=== PATIENT | female | born 1985 | race Caucasian/White ===

== ENCOUNTER 2018-06-19 14:30 | Outpatient (CLI) | payer OTHER, SELFPAY ==
[2018-06-19 14:30] VITALS: BMI 25.6
[2018-06-19 15:46] LABS: Fetal Fibronectin Negative
[2018-06-19 15:50] LABS: Bacteria 0 SEEN /hpf (None Seen); Mucous, Urine 0 SEEN /hpf (<or=2+); Red Blood Cells-Urine 0 SEEN /hpf (0-5)
[2018-06-19 15:52] LABS: Color, Urine Yellow (Yellow); Glucose, Dipstick Normal (Normal); Ketone-Dipstick Negative (Negative); Leukocyte Esterase-Dipstick 25 /ul (Negative); Nitrite-Dipstick Negative (Negative); Occult Blood-Urine Negative /ul (Negative); Protein-Dipstick Negative (Negative); Urine Bilirubin Dipstick Negative (Negative); Urine Clarity Clear (Clear); Urine Urobilinogen Normal (Normal)
[2018-06-19] MEDS: Lactated Ringers 1,000 ML 999 ML IV (16:00)
[2018-06-19 16:07] LABS: Squamous Epithelial Cells - UA 0-5 SEEN /hpf (5-10); White Blood Cells 0-5 SEEN /hpf (0-5)
[2018-06-19] MEDS: Betamethasone/Betamethasone 30 MG/5 ML Vial 12 MG IM (18:00)
--- NOTE | 2018-06-19 18:10 | OB.TRI.NOTE ---
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 Pain started last night then improved. Today has worsened and decided to come to hospital. Upon arriving in L&D pain resolved in back and thighs then became suprapubic cramping. Denies any leakage of fluid, vaginal bleeding, no recent intercourse, or other complaints. After being on L&D unit pain still remains the same and patient does not notice any improvement. During this started 17 OHP injections at 16 weeks. No funneling on ultrasounds and last CL 34mm per patient. Allergies No Known Allergies Allergy (Verified 12/16/16 17:44) Review of Systems Constitutional: Denies: Chills, Fever, Weight Change Cardiovascular: Denies: Chest Pain, Palpitations Respiratory: Denies: Cough, Shortness of breath at rest, Sputum production Gastrointestinal: Reports: Abdominal Pain. Denies: Constipation, Diarrhea, Nausea, Vomiting Genitourinary: Denies: Dysuria, Frequency, Hematuria, Urgency Gynecological: Denies: Vaginal bleeding, Vaginal discharge Physical Exam General: Alert, Oriented x3, No apparent distress HEENT: Atraumatic, Normocephalic Cardiovascular: Regular rate, Regular Rhythm, No murmurs Lungs: Clear to auscultation, Normal air movement, No rhonchi, No wheeze Abdomen: Bowel Sounds Present, Soft, Non Tender, Gravid, - - No CVAT Extremities:: No edema Neurological: Deep Tendon Reflexes 2+/4 and Symmetrical Estimated gestational size: Appropriate for gestational size Presentation: Breech - Verified by bedside ultrasound Cervix Dilation (cm): 1 Station: -3 Effacement (%): 50 NST - FHR Rate Baby A Baseline: 145 Variability:: Moderate Accelerations:: 15 x 15 Decelerations:: None NST Reactive:: Yes, Appropriate for gestational age FHR Category:: Category I Uterine Activity:: No uterine activity appreciated on monitor. Patient has been able to sheri strip when she feels pain. At times it correlates with minimal rise from baseline and other times it does. No significant contractions monitored. No uterine contractions palpated. Impression/Plan A: Rule out labor, History of labor P: 1) Insert IV, 1 liter LR fluid bolus given. CBC ordered 2) Betamethasone 12mg IM once, repeat dose in 24 hours. 3) Bedside ultrasound confirmed breech presentation. 4) Bathroom privileges, Regular diet. 5) notified of patient vaginal exam 1cm/50%/-3, soft, anterior, breech presentation, confirmed by U/S. Possible minimal cervical change but I will re-exam patient with cervical exam if pain increases or contractions identified on monitor. If no change in pain or contractions, will recheck in the am. co-management at this time and agrees with plan of care. Kyra Davidson CNM
[2018-06-19 18:59] LABS: Absolute Neutrophil Count 6.4 X10^3/uL (2.0-7.7); Basophil# 0.02 X10^3/uL; Basophil% 0.2 % (0-1); Eosinophils% 3.3 % (0-5); Hematocrit 35.2 % (37-47); Hemoglobin 11.9 g/dl (12.0-15.0); Lymphocyte % 18.8 % (19-41); Mean Corp Hgb Conc 33.8 g/gl (32-36); Mean Corpuscular Hgb 30.6 pg (27.0-32.0); Mean Corpuscular Volume 90.5 fL (81-99); Mean Platelet Vol. 11.2 fl (6.2-12.0); Monocyte# 0.59 X10^3/uL; Monocyte% 6.5 % (0-10); Neutrophil # 6.41 X10^3/uL (2.7-7.7); Neutrophil % 71.1 % (47-70); POSITIVE COUNT NO; POSITIVE DIFFERENTIAL NO; POSITIVE MORPHOLOGY NO; Platelet Count 257 K/mm3 (150-450); RBC Distribution Width CV 13.2 % (11.6-14.6); RBC Distribution Width SD 42.9 fl (35.1-43.9); Red Blood Count 3.89 M/mm3 (4.2-5.4)
[2018-06-19] MEDS: levETIRAcetam 750 MG Tablet 1500 MG PO (21:24)
--- NOTE | 2018-06-20 07:00 | PCM.PN.OB ---
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 Denies any further cramping, pain, or feeling contractions. Rested throughout the night. Objective: Cervix: 1cm/50%/-3, unchanged from previous exam TOCO: No contractions at this time. Had episodes of intermittent, irregular contractions, not able to be palpated throughout the night. - Physical Exam Abdomen: Soft, Non Tender, Gravid Psych/Mental Status: Normal Affect, Appropriate Weight: 149 lb 4.047 oz Body Mass Index (BMI) 25.6 Laboratory Tests Past 24 Hrs 06/19/18 06/19/18 06/19/18 14:40 15:40 18:40 WBC 9.0 RBC 3.89 L Hgb 11.9 L Hct 35.2 L MCV 90.5 MCH 30.6 MCHC 33.8 RDW 13.2 RDW Differential 42.9 Plt Count 257 MPV 11.2 Immature Gran % (Auto) 0.100 Neut % (Auto) 71.1 H Lymph % (Auto) 18.8 L Hayes % (Auto) 6.5 Eos % (Auto) 3.3 Baso % (Auto) 0.2 Absolute Neuts (auto) 6.4 Absolute Lymphs (auto) 1.70 Total Counted Not Reportable Urine Color Yellow Urine Clarity Clear Urine pH 6.0 Ur Specific Susan 1.020 Urine Protein Negative Urine Glucose (UA) Normal Urine Ketones Negative Urine Occult Blood Negative Urine Nitrite Negative Urine Bilirubin Negative Urine Urobilinogen Normal Ur Leukocyte Esterase 25 H Urine RBC 0 SEEN Urine WBC 0-5 SEEN Ur Squamous Epith Cells 0-5 SEEN Urine Bacteria 0 SEEN Urine Mucus 0 SEEN Fibronectin Negative Medical Necessity - Tobacco Use Smoking Status: Never smoker Assessment/Plan All Active Problems History of labor (Acute) History of delivery (Acute) Hx successful (vaginal after ), currently (Acute) 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 2) Discharge instructions given, nothing in the vagina, no intercourse. 3) Betamethasone 12mg IM once given yesterday, repeat today at 24 hours. 4) Has OB visit in 4 days with ultrasound, ok to keep this visit. 5) Reviewed PTL precautions and when to call. If pain returns to call. 6) notified and updated on patient status, no cervical change, and plan. Agrees at this time.
--- NOTE | 2018-06-20 07:09 | PCM.DC ---
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 Allergies/Adverse Reactions: Allergies No Known Allergies Allergy (Verified 12/16/16 17:44) Medications to take at Discharge Folic Acid 0.8 mg PO DAILY 12/16/16 Vits [Prenatabs FA ] 1 tablet PO DAILY 12/16/16 levETIRAcetam tablet [Keppra tablet] 1,500 mg PO BID 12/16/16 Progesterone [Progesterone in Oil] 50 mg IM QWEEK 03/18/17 Primary Care Physician: Aurelio Ag MD [Primary Care Provider] - Test Results: Test results from this visit will be discussed in further detail at your follow-up appointment, if applicable. Please Follow Up With: Merna Reece MD When: As scheduled for OB visit on 06/24/18
== END 2018-06-20 07:20 | disposition home or self-care (01) ==
LOC: WPOUT 14:35 → WP 14:36
PROVIDERS: Advanced Practice Midwife; Visit Provider Obstetrics & Gynecology
DX: O47.1 False labor at or after 37 completed weeks of gestation (principal); O32.1XX0 Maternal care for breech presentation, not applicable or unspecified; Z3A.39 39 weeks gestation of pregnancy
CPT/HCPCS: 96360; 36415; 59025; 59050; 76815; 81001; 82731; 85025; 96372; 99218; J7120; G0378; J0702

== ENCOUNTER 2018-06-20 18:05 | Outpatient (CLI) | payer OTHER, SELFPAY ==
[2018-06-20 18:15] VITALS: BMI 25.9
[2018-06-20] MEDS: Betamethasone/Betamethasone 30 MG/5 ML Vial 12 MG IM (18:16)
--- NOTE | 2018-07-19 08:47 | OB.TRI.PN ---
Progress Notes Date of Service: 06/21/18 Progress Note: Patient here today to receive second dose of Celestone due to contractions. O: Nursing staff to give Celestone injection A:False Labor P: 1) Second dose of Celestone to be given today due to contractions.
== END 2018-06-20 18:25 | disposition home or self-care (01) ==
LOC: WPOUT 18:10 → WP 18:11
PROVIDERS: Visit Provider Advanced Practice Midwife
DX: O60.00 Preterm labor without delivery, unspecified trimester (principal); Z3A.00 Weeks of gestation of pregnancy not specified
CPT/HCPCS: 96372; 99218; G0378; J0702

== ENCOUNTER 2018-08-24 04:03 | Outpatient (CLI) | payer OTHER, SELFPAY ==
[2018-08-24] MEDS: Lactated Ringers 1,000 ML 999 ML IV (04:50)
[2018-08-24 05:11] VITALS: BMI 27.9
[2018-08-24 05:12] LABS: Hematocrit 35.9 % (37-47); Hemoglobin 12.1 g/dl (12.0-15.0); Mean Corp Hgb Conc 33.7 g/gl (32-36); Mean Corpuscular Hgb 30.6 pg (27.0-32.0); Mean Corpuscular Volume 90.7 fL (81-99); Mean Platelet Vol. 10.8 fl (6.2-12.0); Platelet Count 211 K/mm3 (150-450); RBC Distribution Width CV 13.4 % (11.6-14.6); RBC Distribution Width SD 44.3 fl (35.1-43.9); Red Blood Count 3.96 M/mm3 (4.2-5.4); White Blood Count 10.9 K/mm3 (4.4-11.0)
[2018-08-24 05:16] LABS: Scan Indicated on CBC? Y/N NO
[2018-08-24 05:24] LABS: AST(SGOT) 16 U/L (15-37); Alanine Aminotransfer ALT/SGPT 18 U/L (13-56); Amylase 51 U/L (25-115); Anion Gap 10 (5-15); BUN 11 mg/dL (7-18); BUN/Creat Ratio 18.5 RATIO (10-20); Chloride 105 mmol/L (98-107); Creatinine, Serum 0.59 mg/dL (0.55-1.02); EST Glomerular Filtration Rate 125 mL/min (>60); Est Glom Filt Rate - Afr Amer 151 mL/min (>60); Glucose 91 mg/dL (74-106); Lipase 86 U/L (73-393); Potassium 3.4 mmol/L (3.5-5.1); Sodium Level 140 mmol/L (136-145)
[2018-08-24] MEDS: proMETHazine 25 MG/ML Syringe IV (05:25)
[2018-08-24] MEDS: Ondansetron 4 MG/2 ML Vial IV (06:41)
--- NOTE | 2018-08-24 07:48 | OB.TRI.NOTE ---
History of Present Illness Date of Service: 08/24/18 Was patient seen by the physician?: Yes Reason For Visit: vomiting Date of Service: 08/24/18 Final VANITA Source: LMP Gestational age: 36.1 History of Present Illness: 33yo @ 36.1 wks c/o vomiting and abdominal pain that started around 1am. pt denies fever, sick contacts, diarrhea. Pt reports good FM, no vaginal bleeding or leaking fluid. Pt currently on DEDRICK infections for h/o deliveries. pt offers no other concerns today. Allergies No Known Allergies Allergy (Verified 08/24/18 05:07) Laboratory Studies: Laboratory Tests 08/24/18 08/24/18 Range/Units 04:50 04:50 WBC 10.9 (4.4-11.0) K/mm3 RBC 3.96 L (4.2-5.4) M/mm3 Hgb 12.1 (12.0-15.0) g/dl Hct 35.9 L (37-47) % MCV 90.7 (81-99) fL MCH 30.6 (27.0-32.0) pg MCHC 33.7 (32-36) g/gl RDW 13.4 (11.6-14.6) % RDW Differential 44.3 H (35.1-43.9) fl Plt Count 211 (150-450) K/mm3 MPV 10.8 (6.2-12.0) fl Sodium 140 (136-145) mmol/L Potassium 3.4 L (3.5-5.1) mmol/L Chloride 105 (98-107) mmol/L Carbon Dioxide 25.0 (21.0-32.0) mmol/L Anion Gap 10 (5-15) BUN 11 (7-18) mg/dL Creatinine 0.59 (0.55-1.02) mg/dL Estim Creat Clear Calc 119.30 ml/min Est GFR (MDRD) Af Amer 151 (>60) mL/min Est GFR (MDRD) Non-Af 125 (>60) mL/min BUN/Creatinine Ratio 18.5 (10-20) RATIO Glucose 91 (74-106) mg/dL Calcium 8.0 L (8.5-10.1) mg/dL AST 16 (15-37) U/L ALT 18 (13-56) U/L Amylase 51 (25-115) U/L Lipase 86 (73-393) U/L Review of Systems Constitutional: Denies: Chills, Fever Eyes: Denies: Blurred vision HEENT: Denies: Head Aches Cardiovascular: Denies: Chest Pain Respiratory: Denies: Shortness of Breath Gastrointestinal: Reports: Abdominal Pain - RUQ pain, Vomiting Physical Exam General: Alert, Oriented x3 Abdomen: Soft, Gravid, - - pain in RuQ ON DEEP PALPATION NST - FHR Rate Baby A Baseline: 150 Variability:: Moderate Accelerations:: 15 x 15 Decelerations:: None NST Reactive:: Yes FHR Category:: Category I Uterine Activity:: NO CTX Impression/Plan 33YO @ 36.1 WKS WITH VOMITING AND ABDOMINAL PAIN 1) IVF 2) PHENERGAN/ZOFRAN ORDERED 3) LABS DRAWN AND REVIEWED 4) ULTRASOUND RUQ- R/O CHOLECYSTITIS 5) BLAND DIET IF TOLERATED 6) DR WALLACE WILL REEVALUATE LATER TODAY
--- NOTE | 2018-08-24 09:00 | US_ITS ---
STUDY: ABDOMINAL ULTRASOUND - RIGHT UPPER QUADRANT REASON FOR VISIT: Female, 33 years old. Right upper quadrant pain. The patient is 36 weeks . TECHNIQUE: Ultrasound evaluation of the right upper quadrant was performed with real-time and static rodriguez-scale imaging. TECHNICAL QUALITY: Limited. Examination limited due to the patient?s condition. COMPARISON: None. FINDINGS: Liver: The liver measures 15.6 cm. There is normal echogenicity of the liver. The bile ducts are within normal limits. There is hepatic color flow. The direction of portal flow is hepatopetal. There is no demonstrated mass lesion. Gallbladder: Normal distended gallbladder. The gallbladder wall measures 2.6 mm. There is a negative sonographic Crenshaw's sign. There is minimal pericholecystic fluid. There are no gallstones. Sludge is seen within the gallbladder lumen. Common Bile Duct (C.B.D.): The common bile duct measures 7.2 mm. Pancreas: Normal size of the head, body and tail of the pancreas. There is normal echogenicity of the pancreas. There is no demonstrated pancreatic mass or cyst. Right Kidney: Normal size of the right kidney. The right kidney measures 9.4 cm x 6.2 cm x 4.3 cm. Normal renal cortex. The right cortex measures 1.3. cm. There is no demonstrated renal mass or cyst. There is no right hydronephrosis. US/Abdomen Limited IMPRESSION: Sludge is seen in the gallbladder lumen. Minimal pericholecystic fluid. Electronically Signed: Wade Hayes MD at 11:59 EDT Tel [phone], Service support ,
--- NOTE | 2018-08-24 10:00 | US_ITS ---
STUDY: ABDOMINAL ULTRASOUND - RIGHT UPPER QUADRANT REASON FOR VISIT: Female, 33 years old. Right upper quadrant pain. The patient is 36 weeks . TECHNIQUE: Ultrasound evaluation of the right upper quadrant was performed with real-time and static rodriguez-scale imaging. TECHNICAL QUALITY: Limited. Examination limited due to the patient?s condition. COMPARISON: None. FINDINGS: Liver: The liver measures 15.6 cm. There is normal echogenicity of the liver. The bile ducts are within normal limits. There is hepatic color flow. The direction of portal flow is hepatopetal. There is no demonstrated mass lesion. Gallbladder: Normal distended gallbladder. The gallbladder wall measures 2.6 mm. There is a negative sonographic Crenshaw's sign. There is minimal pericholecystic fluid. There are no gallstones. Sludge is seen within the gallbladder lumen. Common Bile Duct (C.B.D.): The common bile duct measures 7.2 mm. Pancreas: Normal size of the head, body and tail of the pancreas. There is normal echogenicity of the pancreas. There is no demonstrated pancreatic mass or cyst. Right Kidney: Normal size of the right kidney. The right kidney measures 9.4 cm x 6.2 cm x 4.3 cm. Normal renal cortex. The right cortex measures 1.3. cm. There is no demonstrated renal mass or cyst. There is no right hydronephrosis. US/Abdomen Limited IMPRESSION: Sludge is seen in the gallbladder lumen. Minimal pericholecystic fluid. Electronically Signed: Wade Hayes MD at 11:59 EDT Tel [phone], Service support ,
[2018-08-24] MEDS: proMETHazine 25 MG/ML Syringe 12.5 MG IV (12:50)
[2018-08-24] MEDS: Lactated Ringers 1,000 ML 125 ML IV (14:54)
[2018-08-24] MEDS: Acetaminophen 500 MG Tablet 1000 MG PO (16:56)
== END 2018-08-24 17:15 | disposition home or self-care (01) ==
LOC: WPOUT 04:29 → WP 04:30
PROVIDERS: Visit Provider Obstetrics & Gynecology
DX: O21.9 Vomiting of pregnancy, unspecified (principal); O26.893 Other specified pregnancy related conditions, third trimester; R10.11 Right upper quadrant pain; Z3A.36 36 weeks gestation of pregnancy
CPT/HCPCS: 96361; 96374; 96375; 96376; 36415; 59025; 59050; 76705; 80048; 82150; 83690; 84450; 84460; 85027; 99218; J7120; A4216; G0378; J2405

== ENCOUNTER 2018-08-26 16:00 | Inpatient (IN) | payer OTHER, SELFPAY ==
[2018-08-26 16:12] VITALS: BMI 28.0
--- NOTE | 2018-08-26 16:33 | PCM.HP.OB ---
History Date of Admission: 08/26/18 Final VANITA: 09/20/18 Final VANITA Source: LMP Gestational age: 36 Weeks and 3 Days History of this : 33-year-old 5 para 0222 female presents complaining of contractions. She was seen in the office twice today. This morning she was seen for increased contractions and was found to be priya irregularly approximately every 7-8 minutes. She was found however to have change from 3 cm upon previous exam to now 5 cm. Her cervix was still somewhat firm and posterior so she was sent home and she returned this afternoon for reevaluation. She was found to be more uncomfortable and priya closer together and she was 6 cm 80% effaced and -1 station. She was sent to labor and delivery for labor. She denies any gross vaginal bleeding or leaking of fluid. Current is complicated by history of 2 previous deliveries and she was on progesterone during this . She also has a seizure disorder. 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 She also has a history of migraines and has had quite a few headaches during the .. Medical History: Medical History (Last Updated 08/24/18 @ 07:52 by Melisa Rico MD) Epilepsy G40.909 Allergies No Known Allergies Allergy (Verified 08/24/18 05:07) Home Medications: Home Medications Folic Acid 0.8 mg PO DAILY 12/16/16 Vits [Prenatabs FA ] 1 tablet PO DAILY 12/16/16 levETIRAcetam tablet [Keppra tablet] 1,500 mg PO BID 12/16/16 Smoking Status: Never smoker History Past Pregnancies: Past Pregnancies Delivery Date Name GA/Weeks Outcome Route Weight Infant Gender Labor Length Anesthesia Delivery Location Provider FOB Expected Infant Delivery Method: Spontaneous Vaginal Review of Systems Constitutional: Denies: Anorexia, Chills, Fever Eyes: Denies: Blurred vision Cardiovascular: Denies: Chest Pain, Chest Pressure Respiratory: Denies: Shortness of Breath Skin: Denies: Rash Neurological: Reports: Headaches - Have been persistent pretty much throughout the . No significant changes in the last few days.. Denies: Slurred speech, Confusion Physical Exam General: Alert, Cooperative, No apparent distress, - - Appears uncomfortable and is wincing with contractions. HEENT: Atraumatic Cardiovascular: Regular Rhythm Lungs: Normal air movement Abdomen: Soft, Non Tender - Between contractions, Non-Distended, Gravid, Appropriate for Gestational Age Extremities:: No edema, Deep tendon reflexes - 2+ GLASS CALIBRATOR: Normal external genitalia Estimated gestational size: Appropriate for gestational size Presentation: Cephalic Cervix Dilation (cm): 6 Station: -1 Effacement (%): 80 Assessment/Plan All Active Problems (Last Updated 08/24/18 @ 07:52 by Melisa Rico MD) History of labor (Acute) History of delivery (Acute) Hx successful (vaginal after ), currently (Acute) 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 She has a history of one previous section and one successful vaginal after section. Patient would like to proceed with trial of labor. Consent was previously signed. Estimated weight is less than 4500 g and pelvis clinically adequate. May have epidural or Nubain as needed. Will initiate group B strep prophylaxis. Will need to continue her antiseizure medications in labor. If patient would need a section, she would likely elect for a tubal ligation as she plans permanent sterilization for contraception.
[2018-08-26] MEDS: Lactated Ringers 1,000 ML 50 ML IV ×2 (16:35→17:35)
[2018-08-26 17:01] LABS: Hematocrit 35.5 % (37-47); Hemoglobin 11.9 g/dl (12.0-15.0); Mean Corp Hgb Conc 33.5 g/gl (32-36); Mean Corpuscular Hgb 30.6 pg (27.0-32.0); Mean Corpuscular Volume 91.3 fL (81-99); Mean Platelet Vol. 11.5 fl (6.2-12.0); Platelet Count 227 K/mm3 (150-450); RBC Distribution Width CV 13.6 % (11.6-14.6); RBC Distribution Width SD 44.9 fl (35.1-43.9); Red Blood Count 3.89 M/mm3 (4.2-5.4); Scan Indicated on CBC? Y/N NO; White Blood Count 5.9 K/mm3 (4.4-11.0)
[2018-08-26] MEDS: fentaNYL-bupivacaine (epidural) 100 ML BAG EPIDURAL (17:56)
--- NOTE | 2018-08-26 19:02 | NURSING ---
Dr. Paredes notified of pt request, IV bolus infusing. epidural not placed until initial bolus nearly complete per protocol
[2018-08-26] MEDS: Oxytocin 30 units/NS 500 ml 30 UNITS/500 ML IV.SOLN 334 UNITS IV (20:17)
--- NOTE | 2018-08-26 20:35 | PCM.OB.VAG ---
Vaginal Delivery Maternal Presentation: Active Labor Amniotic Membrane Rupture Type: Artificial Amniotic Fluid Description: Clear Final VANITA: 09/20/18 Final VANITA Source: US <20 weeks Gestational age: 36 Weeks and 3 Days Date of Procedure: 08/26/18 Pre-Operative Diagnosis: labor Post-Operative Diagnosis: same Surgery/ Procedure Performed: Spontaneous Vaginal Delivery - Vaginal after Type of Anesthesia: Epidural Description of Procedure: A vigorous female infant was delivered TITA over a second-degree perineal laceration. A loose nuchal cord ?1 was easily reduced. The remainder the infant was delivered with maternal pushing and gentle traction only in less than 15 seconds. The Pitocin infusion was initiated for active management of the third stage. The cord was clamped and cut after 1 minute. The was attended to by the waiting nursing staff. The placenta was delivered spontaneously and intact. The cervix and vagina were intact. The second-degree perineal laceration was repaired with 3-0 Vicryl suture in a running standard fashion. Sponge and needle counts were correct. A vaginal sweep was completed by me. Presentation: TITA Placental Delivery Description: Spontaneous Placenta Disposition: [facility] Cord Vessel Description: 3 Vessels Nuchal Cord Compression: Without compression Cord Entanglement: Around neck x 1, loose Drain: Webb to straight drain Estimated Blood Loss: 300cc Infant A gender: Female (1 minute): 8 (5 minute): 9 Episiotomy Description: None Laceration: 2nd degree - perineal Medications given after delivery: IV Pitocin Complications: None
[2018-08-26] MEDS: Oxytocin 30 units/NS 500 ml 30 UNITS/500 ML IV.SOLN 167 UNITS IV (20:47)
[2018-08-26] MEDS: levETIRAcetam 750 MG Tablet 1500 MG PO (22:51)
--- NOTE | 2018-08-26 23:02 | NURSING ---
Bedside shift report given to Juliana Sánchez RN. She will assume care of patient at this time.
[2018-08-26] MEDS: Acetaminophen 500 MG Tablet 1000 MG PO (23:05)
[2018-08-27 00:17] VITALS: BP 109/72; PULSE 98; RESP 20; TEMP 37.2
[2018-08-27 04:30] VITALS: BP 97/62; PULSE 78; RESP 18; TEMP 37.1
--- NOTE | 2018-08-27 07:09 | PCM.PN.OB ---
Subjective: Pain well controlled, average lochia. Ambulating and urinating without difficulty - Physical Exam General: Alert, Cooperative, No apparent distress Vital Signs Temp Pulse Resp BP 98.7 F 78 18 97/62 08/27/18 04:30 08/27/18 04:30 08/27/18 04:30 08/27/18 04:30 Weight: 74.2 kg Body Mass Index (BMI) 28.0 Intake and Output for Last 24 Hours 08/25/18 08/26/18 08/27/18 23:59 23:59 23:59 Intake Total 2700 / 2700 Output Total 200 / 200 Balance 2500 / 2500 Laboratory Tests Past 24 Hrs 08/26/18 08/26/18 16:35 16:35 WBC 5.9 RBC 3.89 L Hgb 11.9 L Hct 35.5 L MCV 91.3 MCH 30.6 MCHC 33.5 RDW 13.6 RDW Differential 44.9 H Plt Count 227 MPV 11.5 Blood Type O POSITIVE Antibody Screen NEGATIVE Medical Necessity - Tobacco Use Smoking Status: Never smoker Assessment/Plan All Active Problems (Last Updated 08/24/18 @ 07:52 by Melisa Rico MD) History of labor (Acute) History of delivery (Acute) Hx successful (vaginal after ), currently (Acute) 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 His tongue-tied they are going to try and get an ENT consult today. Routine care for mom.
--- NOTE | 2018-08-27 07:13 | DCINST_ITS ---
Discharge Diet: No Restrictions Discharge Activity: Return to Normal Activity, May not drive while taking narcotic pain medications., May Shower May resume sexual activity in: 4-6 weeks Additional Activity Instructions:: Nothing in the vagina for 4-6 weeks. You may return to work/school in 6 weeks. Call your doctor if your incision/area has: Continuous Slow Oozing, Sudden Increased Bleeding, Increased Pain/ Swelling, Increased Redness, Foul Smelling Discharge Additional Instructions: If you experience any of the following, contact your healthcare provider. * Bleeding that soaks a pad every hour for 2 hours * Fever 100.4 or higher * Unrelieved incision or abdominal pain * Swelling, redness, discharge or bleeding from your incision or episiotomy site * Your incision begins to separate * Problems urinating (including inability to urinate or burning while urinating). * Visual changes * Severe headache * Flu-like symptoms * Pain or redness in one of both of your breasts * Pain, warmth, tenderness or swelling in your legs, especially the calf area * Frequent nausea and vomiting * Symptoms of depression or anxiety If you experience any of the following, call 911 or go to the nearest Emergency Room. * Chest pain * Problems breathing * Seizure activity * Partial or complete paralysis of a body part, slurred speech, weakness or drooping of the face, or a sudden inability to walk or hold your balance Allergies/Adverse Reactions: Allergies No Known Allergies Allergy (Verified 08/24/18 05:07) Medications to take at Discharge Folic Acid 0.8 mg PO DAILY 12/16/16 Vits [Prenatabs FA ] 1 tablet PO DAILY 12/16/16 levETIRAcetam tablet [Keppra tablet] 1,500 mg PO BID 12/16/16 Ibuprofen [Motrin] 600 mg PO Q6H PRN #60 tablet 08/27/18 The following prescriptions were given: Ibuprofen [Motrin] 600 mg PO Q6H PRN #60 tablet PRN Reason: Pain Please Follow Up With: Merna Reece MD When: Call to make an appointment with your doctor in 1-2 and 6 weeks. Primary Care Physician: Aurelio Ag MD [Primary Care Provider] - Test Results: Test results from this visit will be discussed in further detail at your follow- up appointment, if applicable.
[2018-08-27] MEDS: levETIRAcetam 750 MG Tablet 1500 MG PO ×2 (09:53→21:53)
[2018-08-27] MEDS: Senna/Docusate Sodium 1 Tablet PO (09:55)
[2018-08-27 10:00] VITALS: BP 110/71; PULSE 89; RESP 18; TEMP 36.3; O2SAT 98
[2018-08-27] MEDS: Naproxen 250 MG Tablet PO (10:06)
[2018-08-27] MEDS: Dibucaine 30 GM Tube 1 APPLIC TOPICAL (10:07)
[2018-08-27 12:00] VITALS: BP 109/76; PULSE 77; RESP 18; TEMP 36.3; O2SAT 98
[2018-08-27] MEDS: Acetaminophen 500 MG Tablet 1000 MG PO (16:36)
[2018-08-27 16:37] VITALS: BP 105/70; PULSE 81; RESP 18; TEMP 36.7; O2SAT 97
[2018-08-27 20:05] VITALS: BP 109/76; PULSE 64; RESP 16; TEMP 36.3
[2018-08-28 02:15] VITALS: BP 109/64; PULSE 77; RESP 16; TEMP 36.5
--- NOTE | 2018-08-28 08:24 | PCM.PN.OB ---
Subjective: pt seen at bedside, doing well. pt reports good pain control. lochia mild. Breast feeding. Voiding w/o difficulty. - Physical Exam General: Alert, Oriented x3 Abdomen: Soft, Non Tender, - - fundus firm Extremities: No Calf Tenderness Vital Signs Temp Pulse Resp BP Pulse Ox 97.7 F L 77 16 109/64 97 08/28/18 02:15 08/28/18 02:15 08/28/18 02:15 08/28/18 02:15 08/27/18 16:37 Oxygen Delivery Method Room Air Weight: 74.2 kg Body Mass Index (BMI) 28.0 Intake and Output for Last 24 Hours 08/26/18 08/27/18 08/28/18 23:59 23:59 23:59 Intake Total 2700 / 2700 Output Total 200 / 200 600 / 600 Balance 2500 / 2500 -600 / -600 Medical Necessity - Tobacco Use Smoking Status: Never smoker Assessment/Plan All Active Problems (Last Updated 08/24/18 @ 07:52 by Melisa Rico MD) History of labor (Acute) History of delivery (Acute) Hx successful (vaginal after ), currently (Acute) 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
[2018-08-28 10:00] VITALS: BP 112/78; PULSE 79; RESP 16; TEMP 36.5
[2018-08-28] MEDS: levETIRAcetam 750 MG Tablet 1500 MG PO (10:07)
[2018-08-28] MEDS: Senna/Docusate Sodium 1 Tablet PO (10:11)
[2018-08-28 15:55] VITALS: BP 113/68; PULSE 77; RESP 18; TEMP 36.6
--- NOTE | 2018-08-28 16:51 | NURSING ---
[id number] Patient requests to go home today. States she is comfortable going home and is able to care for herself and her baby. Sim with fe given for supplementing if needed. 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 Discharge instructions reviewed including jaundice and feedings. Voiced understanding. Discharged to home with baby via wheelchair to car.
== END 2018-08-28 15:55 | disposition home or self-care (01) | DRG 806 ==
PROVIDERS: Admitting Provider Obstetrics & Gynecology; Referring Provider Obstetrics & Gynecology; Visit Provider Obstetrics & Gynecology
DX: O60.14X0 Preterm labor third trimester with preterm delivery third trimester, not applicable or unspecified (principal); O99.354 Diseases of the nervous system complicating childbirth; Z37.0 Single live birth; G40.909 Epilepsy, unspecified, not intractable, without status epilepticus; O99.824 Streptococcus B carrier state complicating childbirth; O70.1 Second degree perineal laceration during delivery; O69.81X0 Labor and delivery complicated by cord around neck, without compression, not applicable or unspecified; Z3A.36 36 weeks gestation of pregnancy; Z79.899 Other long term (current) drug therapy
CPT/HCPCS: 59025; 59050; 85027; 86850; 86900; 99218; J7120; G0378

== ENCOUNTER 2018-10-21 09:00 | Day surgery (SDC) | payer OTHER, SELFPAY ==
[2018-10-21] VITALS (11 sets, daily range): BP systolic 100–140; BP diastolic 65–97; PULSE 52–97; RESP 16–18; TEMP 36.1–36.6; O2SAT 98–100; BMI 22.8
[2018-10-21] MEDS: Acetaminophen 500 MG Tablet 1000 MG PO (09:40)
[2018-10-21 09:41] LABS: Internal QC Validated? YES +Cl - CLEAR BKGD
[2018-10-21 09:46] LABS: Absolute Lymphocyte Count 1.64 X10^3/ul (0.83-4.51); Absolute Neutrophil Count 1.7 X10^3/uL (2.0-7.7); Basophil# 0.05 X10^3/uL; Basophil% 1.2 % (0-1); Eosinophil# 0.33 X10^3/uL; Eosinophils% 8.1 % (0-5); Hematocrit 39.1 % (37-47); Hemoglobin 12.9 g/dl (12.0-15.0); Lymphocyte # 1.64 X10^3/ul (4.0); Lymphocyte % 40.5 % (19-41); Mean Corpuscular Hgb 29.3 pg (27.0-32.0); Mean Corpuscular Volume 88.9 fL (81-99); Mean Platelet Vol. 11.2 fl (6.2-12.0); Monocyte# 0.32 X10^3/uL; Monocyte% 7.9 % (0-10); Neutrophil # 1.71 X10^3/uL (2.7-7.7); Neutrophil % 42.3 % (47-70); Platelet Count 263 K/mm3 (150-450); RBC Distribution Width CV 12.3 % (11.6-14.6); RBC Distribution Width SD 39.3 fl (35.1-43.9); White Blood Count 4.1 K/mm3 (4.4-11.0)
[2018-10-21 09:46] LABS: Pregnancy, Urine Negative Negative
[2018-10-21] MEDS: Ketorolac 30 MG/ML Syringe IV (09:53)
[2018-10-21 09:55] LABS: POSITIVE COUNT NO; POSITIVE DIFFERENTIAL NO; POSITIVE MORPHOLOGY NO
[2018-10-21] MEDS: Bupivacaine Mpf 0.5% 30 ML VIAL (10:25)
--- NOTE | 2018-10-21 10:30 | FALS_PTH ---
PATIENT: ISAM SMITH LOC: [facility] [place] U#:[id number] AGE/SX: 33/F ROOM: RE10/21/[address]: Dr. Merna Reece MD : [id number] BED: DIS: 10/21/2018 SPEC #: [id number] RECD: 10/21/18 11:37 STATUS: SAMEER REMerlene #: [id number] ISSAC: 10/21/18 10:[address]: Merna Reece DEPT: SURGICAL PATHOLOGY RECD BY: Mike Lerma ENTERED: 10/21/18 12:56 SP TYPE: FALL TUBES OTHR DR: Dr. Arturo Farley MD Tissues: Fallopian tube Procedures: Surgery Specimen Level II HEADER OPERATION: Laparoscopic salpingectomy PRE-OP DIAGNOSIS: Sterilization request TISSUE SUBMITTED: Bilateral fallopian tubes MICROSCOPIC DIAGNOSIS Bilateral fallopian tubes, salpingectomy: Completely transected segments of bilateral fallopian tubes, no pathologic diagnosis. SJ:ortiz 10/22/18 MICROSCOPIC DESCRIPTION Slides are reviewed. GROSS DESCRIPTION Received is one container labeled with the patient's name and designated bilateral fallopian tubes. The specimen consists of bilateral fallopian tubes including fimbrial ends measuring 6.5 cm in length and 0.5 cm in diameter. Sections do not reveal any mass lesion. The fallopian tubes are not identified as right or left. Sections reveal unremarkable cut surfaces. Yarn Salvager sections are submitted in two cassettes with each cassette containing one fallopian tube. / AM:ortiz 10/21/18 TC:5 CPT: 03859 x2
--- NOTE | 2018-10-21 10:39 | PCM.DC.TUB ---
Discharge Diet: No Restrictions - Increase fluid intake for the next 48 hours. Discharge Activity: Return to Normal Activity, May Drive - when you are no longer taking pain/narcotic meds., May Shower, May Take a Tub Bath - in 7 days Additional Activity Instructions:: Ambulate often the next week after surgery. Nothing in the vagina for 5 days. Call your doctor if your incision/area has: Continuous Slow Oozing, Sudden Increased Bleeding, Increased Pain/ Swelling, Increased Redness, Foul Smelling Discharge Call your doctor if you observe: Fever of 101 or Higher Cleanse incision/area with: Soap & Water, - - Your incisions have skin glue. They can get wet. Please leave the glue on for 1-2 weeks. Allergies/Adverse Reactions: Allergies No Known Allergies Allergy (Verified 08/24/18 05:07) Medications to take at Discharge Folic Acid 0.8 mg PO DAILY 12/16/16 Vits [Prenatabs FA ] 1 tablet PO DAILY 12/16/16 levETIRAcetam tablet [Keppra tablet] 1,500 mg PO BID 12/16/16 Ibuprofen [Motrin] 600 mg PO Q6H PRN #60 tablet 08/27/18 Hydrocodone/Acetaminophen [Irvine 5-325 Tablet] 1 - 2 each PO Q6H PRN PRN 4 Days #10 tablet 10/21/18 The following prescriptions were given: Hydrocodone/Acetaminophen [Irvine 5-325 Tablet] 1 - 2 each PO Q6H PRN PRN 4 Days #10 tablet PRN Reason: Severe Pain (6-10/10) Primary Care Physician: Arturo Farley MD [Primary Care Provider] - Test Results: Test results from this visit will be discussed in further detail at your follow-up appointment, if applicable. Please Follow Up With: Merna Reece MD - [phone] When: 2-4 weeks as needed
--- NOTE | 2018-10-21 10:42 | OP.PCM_ITS ---
Report of Operation Date of Procedure: 10/21/18 Pre-Operative Diagnosis: Sterilization request Post-Operative Diagnosis: Same Surgery/Procedure Performed:: Laparoscopic bilateral salpingectomy Description of Surgical Findings:: Normal-appearing uterus tubes and ovaries. Normal peritoneal cavity. No evidence of endometriosis or adhesions. weatherization operations manager: John Crawford Type of Anesthesia:: General Anesthesiologist: Ezra Hassan Special Medications: None Specimen's removed: bilateral fallopian tubes Drains: None Estimated Blood Loss (mL): 10 Fluids Replaced: 700 cc lr Description of Procedure: The patient was taken to the operating room where she was prepped and draped in the dorsolithotomy position. A weighted speculum was placed in the vagina and the anterior lip of the cervix was grasped with a tenaculum. The Merlyn uterine manipulator was placed and the remainder of the instruments were removed from the vagina. Attention was turned to the abdomen. All port sites were infiltrated with 0.5% Marcaine before skin incisions were made. A 5 mm intraumbilical incision was made. The anterior abdominal wall was tented up with 2 towel clamps while a 5 mm blade less trocar and sleeve were directly inserted. Intraperitoneal placement was confirmed with the laparoscope. The pneumoperitoneum was created and the underlying abdominal contents were intact. The patient was placed in Trendelenburg. Right and left lower quadrant ports were placed under direct visualization lateral to the inferior epigastric vessels. The bowel was swept away and the above findings were noted. The LigaSure device was used to clamp seal and transect the antimesenteric portions of the right tube to the cornual insertion of the uterus. The tube was amputated from the uterus and the pedicles were all confirmed to be hemostatic. The same procedure was performed on the contralateral side. The specimens were brought out through a 5 mm port. The pedicles were again examined and found to be hemostatic. The lateral ports were removed under direct visualization and no active bleeding was noted. The pneumoperitoneum was released. The skin incisions were closed with Monocryl suture in a subcuticular fashion and skin glue by the BROKERAGE OFFICE MANAGER with me present in the OR suite. The vaginal instruments were removed and the vaginal sweep was completed by me. The procedure was performed by me with assistance other than as dictated above. All sponge and needle counts were correct and the patient was taken to the recovery room in stable condition. Grafts/Implants Used: None - Complications None - Admit VTE Documentation VTE Present on Admission: No VTE Mechan Device Prophylaxis: SCD's VTE Pharm Prophylaxis ordered?: No Reason prophylaxis not ordered:: Procedure Not Indicated
== END 2018-10-21 13:46 | disposition home or self-care (01) ==
LOC: SDC 09:01 → AC 09:03
PROVIDERS: Anesthesiology; Family Provider Family Medicine; PCP Family Medicine; Referring Provider Obstetrics & Gynecology; Visit Provider Obstetrics & Gynecology
PROC: (CPT 58661; principal; 2018-10-21 10:15)
DX: Z30.2 Encounter for sterilization (principal); G40.109 Localization-related (focal) (partial) symptomatic epilepsy and epileptic syndromes with simple partial seizures, not intractable, without status epilepticus; Z79.899 Other long term (current) drug therapy
CPT/HCPCS: 00840; 58661; 36415; 81025; 85025; 88302; J7120

== ENCOUNTER → 2020-12-25 13:14 | Outpatient (CLI) | payer BC, SELFPAY ==
[2018-10-21 09:34] VITALS: BMI 22.8
[2020-12-25 15:27] LABS: Absolute Lymphocyte Count 1.52 X10^3/uL (0.83-4.51); Absolute Neutrophil Count 2.8 X10^3/uL (2.0-7.7); Basophil# 0.07 X10^3/uL; Basophil% 1.3 % (0-1); Eosinophil# 0.28 X10^3/uL; Eosinophils% 5.3 % (0-5); Hematocrit 41.3 % (37-47); Hemoglobin 13.5 g/dL (12.0-15.0); Lymphocyte # 1.52 X10^3/ul (4.0); Lymphocyte % 28.8 % (19-41); Mean Corp Hgb Conc 32.7 g/dL (32-36); Mean Corpuscular Hgb 28.5 pg (27.0-32.0); Mean Corpuscular Volume 87.3 fL (81-99); Mean Platelet Vol. 12.3 fl (6.2-12.0); Monocyte# 0.56 X10^3/uL; Monocyte% 10.6 % (0-10); NRBC Flagged by Analyzer 0 % (0-5); Neutrophil # 2.84 X10^3/uL (2.7-7.7); Neutrophil % 53.8 % (47-70); Platelet Count 294 K/mm3 (150-450); RBC Distribution Width CV 12.1 % (11.6-14.6); Red Blood Count 4.73 M/mm3 (4.2-5.4); White Blood Count 5.3 K/mm3 (4.4-11.0)
[2020-12-25 16:09] LABS: ALB/GLOB Ratio 1.3 RATIO (0.9-2.4); AST(SGOT) 12 U/L (15-37); Alanine Aminotransfer ALT/SGPT 19 U/L (13-56); Albumin, Serum 3.9 g/dL (3.2-5.0); Alkaline Phosphatase 78 U/L (45-117); Anion Gap 7 (5-15); BUN 11 mg/dL (7-18); BUN/Creat Ratio 12.7 RATIO (10-20); Calcium,Total 8.7 mg/dL (8.5-10.1); Chloride 106 mmol/L (98-107); Creatinine, Serum 0.86 mg/dL (0.55-1.02); EST Glomerular Filtration Rate 80 mL/min (>60); Est Glom Filt Rate - Afr Amer 97 mL/min (>60); Globulin 3.1 g/dL (2.2-4.2); Glucose 81 mg/dL (74-106); Iron 120 ug/dL (50-170); Potassium 3.6 mmol/L (3.5-5.1); Sodium Level 141 mmol/L (136-145); T4 Free Direct 1.01 ng/dL (0.76-1.46); Thyroid Stim Hormone (TSH) 0.96 uIU/mL (0.358-3.74)
== END ==
LOC: LAB.FUTURE 13:15 → BFHLAB 13:36
PROVIDERS: PCP Family Medicine; Visit Provider Family Medicine
DX: D64.9 Anemia, unspecified (principal); G40.909 Epilepsy, unspecified, not intractable, without status epilepticus; N92.0 Excessive and frequent menstruation with regular cycle
CPT/HCPCS: 36415; 80053; 83540; 84439; 84443; 85025

== ENCOUNTER 2021-02-06 12:16 | Outpatient (RCR) | payer BC, SELFPAY ==
[2018-10-21 09:34] VITALS: BMI 22.8
== END 2021-04-09 23:59 ==
LOC: IMMUN 12:16
PROVIDERS: PCP Family Medicine; Visit Provider Family Medicine
DX: Z23 Encounter for immunization (principal)
CPT/HCPCS: 0002A; 91300

== ENCOUNTER → 2021-09-23 12:35 | Outpatient (CLI) | payer BC, SELFPAY | PROVIDERS: PCP Family Medicine; Visit Provider Family Medicine | DX: Z20.828 Contact with and (suspected) exposure to other viral communicable diseases (principal) | CPT/HCPCS: 87633; 87635; U0005; U0003 ==

== ENCOUNTER → 2023-01-09 | Outpatient (CLI) | payer BC, SELFPAY ==
[2023-01-09 15:04] LABS: Absolute Lymphocyte Count 1.73 X10^3/uL (0.83-4.51); Absolute Neutrophil Count 2.4 X10^3/uL (2.0-7.7); Basophil# 0.05 X10^3/uL; Eosinophils% 6.1 % (0-5); Hematocrit 41.1 % (37-47); Hemoglobin 13.9 g/dL (12.0-15.0); Lymphocyte # 1.73 X10^3/ul (0.83-4.51); Lymphocyte % 35.4 % (19-41); Mean Corp Hgb Conc 33.8 g/dL (32-36); Mean Corpuscular Hgb 29.4 pg (27.0-32.0); Mean Corpuscular Volume 87.1 fL (81-99); Mean Platelet Vol. 11.3 fl (6.2-12.0); Monocyte# 0.38 X10^3/uL; Monocyte% 7.8 % (0-10); NRBC Flagged by Analyzer 0 % (0-5); Neutrophil # 2.42 X10^3/uL (2.7-7.7); Neutrophil % 49.5 % (47-70); Platelet Count 363 K/mm3 (150-450); RBC Distribution Width CV 12.3 % (11.6-14.6); RBC Distribution Width SD 39.6 fl (35.1-43.9); Red Blood Count 4.72 M/mm3 (4.2-5.4); White Blood Count 4.9 K/mm3 (4.4-11.0)
[2023-01-09 15:48] LABS: ALB/GLOB Ratio 1.2 RATIO (0.9-2.4); AST(SGOT) 25 U/L (15-37); Alanine Aminotransfer ALT/SGPT 43 U/L (13-56); Albumin, Serum 3.7 g/dL (3.2-5.0); Alkaline Phosphatase 76 U/L (45-117); Anion Gap 9 (5-15); BUN 12 mg/dL (7-18); BUN/Creat Ratio 15.7 RATIO (10-20); Chloride 106 mmol/L (98-107); Creatinine, Serum 0.77 mg/dL (0.55-1.02); EST Glomerular Filtration Rate 91 mL/min (>60); Est Glom Filt Rate - Afr Amer 110 mL/min (>60); Globulin 3.1 g/dL (2.2-4.2); Glucose 90 mg/dL (74-106); Potassium 3.6 mmol/L (3.5-5.1); Protein, Total 6.8 g/dL (6.4-8.2); Sodium Level 140 mmol/L (136-145); T4 Free Direct 0.96 ng/dL (0.76-1.46); Thyroid Stim Hormone (TSH) 1.21 uIU/mL (0.358-3.74)
[2023-01-09 16:13] LABS: Vitamin B12 334 pg/mL (211-911)
== END | disposition home or self-care (01) ==
LOC: BIMLAB 14:04
PROVIDERS: PCP Internal Medicine; Referring Provider Internal Medicine; Visit Provider Internal Medicine
DX: F41.9 Anxiety disorder, unspecified (principal); F32.A Depression, unspecified
CPT/HCPCS: 36415; 80053; 82306; 82607; 84439; 84443; 85025

== ENCOUNTER → 2023-12-14 | Outpatient (CLI) | payer BC, SELFPAY ==
[2023-12-14 10:45] LABS: Absolute Lymphocyte Count 1.35 X10^3/uL (0.83-4.51); Absolute Neutrophil Count 1.9 X10^3/uL (2.0-7.7); Basophil# 0.07 X10^3/uL; Basophil% 1.7 % (0-1); Eosinophil# 0.33 X10^3/uL; Eosinophils% 8.2 % (0-5); Hematocrit 39.5 % (37-47); Hemoglobin 12.8 g/dL (12.0-15.0); Lymphocyte # 1.35 X10^3/ul (0.83-4.51); Lymphocyte % 33.4 % (19-41); Mean Corp Hgb Conc 32.4 g/dL (32-36); Mean Corpuscular Hgb 28.5 pg (27.0-32.0); Mean Platelet Vol. 12.5 fl (6.2-12.0); Monocyte% 9.9 % (0-10); NRBC Flagged by Analyzer 0 % (0-5); Neutrophil # 1.88 X10^3/uL (2.7-7.7); Neutrophil % 46.6 % (47-70); Platelet Count 383 K/mm3 (150-450); RBC Distribution Width CV 12.1 % (11.6-14.6); RBC Distribution Width SD 39.2 fl (35.1-43.9); Red Blood Count 4.49 M/mm3 (4.2-5.4)
[2023-12-14 11:20] LABS: Anion Gap 6 (5-15); BUN 11 mg/dL (7-18); BUN/Creat Ratio 12.8 RATIO (10-20); Calcium,Total 8.8 mg/dL (8.5-10.1); Chloride 108 mmol/L (98-107); Creatinine, Serum 0.86 mg/dL (0.55-1.02); EST Glomerular Filtration Rate 79 mL/min (>60); Est Glom Filt Rate - Afr Amer 95 mL/min (>60); Glucose 82 mg/dL (74-106); Sodium Level 141 mmol/L (136-145)
== END | disposition home or self-care (01) ==
LOC: BIMLAB 08:29
PROVIDERS: PCP Internal Medicine; Referring Provider Internal Medicine; Visit Provider Internal Medicine
DX: F41.9 Anxiety disorder, unspecified (principal); F32.A Depression, unspecified
CPT/HCPCS: 36415; 80048; 85025

== ENCOUNTER → 2024-06-10 | Outpatient (CLI) | payer BC, SELFPAY ==
[2024-06-10 13:08] LABS: T4 Free Direct 0.93 ng/dL (0.76-1.46); Thyroid Stim Hormone (TSH) 1.43 uIU/mL (0.358-3.74)
[2024-06-10 13:12] LABS: Vitamin B12 1793 pg/mL (211-911); Vitamin D,25 Hydroxy 54.4 ng/mL
== END | disposition home or self-care (01) ==
LOC: BIMLAB 08:33
PROVIDERS: PCP Internal Medicine; Referring Provider Internal Medicine; Visit Provider Internal Medicine
DX: F41.9 Anxiety disorder, unspecified (principal); F32.A Depression, unspecified; E55.9 Vitamin D deficiency, unspecified
CPT/HCPCS: 36415; 82306; 82607; 84439; 84443

== ENCOUNTER → 2024-11-25 | Outpatient (CLI) | payer BC, SELFPAY ==
[2024-11-25 12:04] LABS: Absolute Lymphocyte Count 1.53 X10^3/uL (0.83-4.51); Basophil# 0.07 X10^3/uL; Basophil% 1.6 % (0-1); Eosinophil# 0.39 X10^3/uL; Eosinophils% 8.9 % (0-5); Hematocrit 44.7 % (37-47); Hemoglobin 14.3 g/dL (12.0-15.0); Lymphocyte # 1.53 X10^3/ul (0.83-4.51); Mean Corpuscular Volume 87.6 fL (81-99); Mean Platelet Vol. 12.2 fl (6.2-12.0); Monocyte# 0.37 X10^3/uL; Monocyte% 8.5 % (0-10); NRBC Flagged by Analyzer 0 % (0-5); Neutrophil % 45.8 % (47-70); Platelet Count 312 K/mm3 (150-450); RBC Distribution Width CV 12.7 % (11.6-14.6); RBC Distribution Width SD 41.1 fl (35.1-43.9); White Blood Count 4.4 K/mm3 (4.4-11.0)
[2024-11-25 12:32] LABS: ALB/GLOB Ratio 1.2 RATIO (0.9-2.4); AST(SGOT) 13 U/L (15-37); Alanine Aminotransfer ALT/SGPT 28 U/L (13-56); Albumin, Serum 3.8 g/dL (3.2-5.0); Alkaline Phosphatase 95 U/L (45-117); Anion Gap 6 (5-15); BUN 11 mg/dL (7-18); BUN/Creat Ratio 12.2 RATIO (10-20); Calcium,Total 9.2 mg/dL (8.5-10.1); Chloride 106 mmol/L (98-107); EST Glomerular Filtration Rate 75 mL/min (>60); Est Glom Filt Rate - Afr Amer 90 mL/min (>60); Globulin 3.3 g/dL (2.2-4.2); Glucose 59 mg/dL (74-106); Potassium 4.2 mmol/L (3.5-5.1); Protein, Total 7.1 g/dL (6.4-8.2); Sodium Level 140 mmol/L (136-145)
== END | disposition home or self-care (01) ==
LOC: BIMLAB 09:10
PROVIDERS: PCP Internal Medicine; Referring Provider Internal Medicine; Visit Provider Internal Medicine
DX: Z00.00 Encounter for general adult medical examination without abnormal findings (principal)
CPT/HCPCS: 36415; 80053; 85025